=== PATIENT | female | born 1965 | race Caucasian/White ===

== ENCOUNTER 2022-11-17 10:50 | Outpatient (CLI) | payer BC, SELFPAY | END 2022-11-17 10:51 | disposition home or self-care (01) | LOC: LONREF 10:51 | PROVIDERS: PCP Nurse Practitioner Family; Visit Provider Nurse Practitioner Family | DX: Z00.00 Encounter for general adult medical examination without abnormal findings (principal); Z13.6 Encounter for screening for cardiovascular disorders | CPT/HCPCS: 80061 ==

== ENCOUNTER 2023-08-11 09:04 | Outpatient (CLI) | payer BC, SELFPAY ==
[2023-08-11 09:14] LABS: Hemoglobin* 14.2 gm/dL (12.0-16.0); Mean Corpuscular HGB Conc 33 gm/dL (32-36); Mean Corpuscular Hemoglobin 29 pg (26-34); Mean Corpuscular Volume 87 fL (80-100); Platelet Count* 312 K/uL (140-440); Red Blood Count 4.97 m/uL (4.00-5.20); White Blood Count* 5.04 K/uL (4.50-11.00)
[2023-08-11 09:16] LABS: Slide Review Reflex No
[2023-08-11 10:22] LABS: Hemoglobin A1C* 5.2 % (0-5.6)
[2023-08-11 13:05] LABS: Albumin* 4.4 g/dL (3.3-5.0); Chloride* 102 mmol/L (96-114); Sodium* 141 mmol/L (135-149)
[2023-08-11 13:07] LABS: Anion Gap 9 mEq/L (7-15); Bilirubin Total* 1.4 mg/dL (0.1-1.5); Carbon Dioxide* 30 mmol/L (20-32); Creatinine* 0.7 mg/dL (0.5-1.5); Estimated Glomerular Filt Rate 99 ml/min
[2023-08-11 13:08] LABS: Alanine Aminotransferase* 18 U/L (4-35); Alkaline Phosphatase* 78 U/L (40-150); Aspartate Amino Transferase* 26 U/L (12-35); Blood Urea Nitrogen* 15 mg/dL (7-30); Calcium* 9.9 mg/dL (8.4-10.6); Glucose* 85 mg/dL (60-115); Total Protein* 7.9 g/dL (6.0-8.3)
[2023-08-11 13:23] LABS: Vitamin D 25 Hydroxy* 44 ng/mL (30-80)
[2023-08-11 13:38] LABS: TSH With Reflex to FT4* 0.741 uIU/mL (0.270-4.200)
== END 2023-08-11 09:05 | disposition home or self-care (01) ==
PROVIDERS: PCP Nurse Practitioner Family; Visit Provider Obstetrics & Gynecology
DX: N95.1 Menopausal and female climacteric states (principal); R00.2 Palpitations; E66.3 Overweight
CPT/HCPCS: 80053; 82306; 83036; 84443; 85027